=== PATIENT | female | born 1950 | race Caucasian/White ===

== ENCOUNTER 2017-01-04 17:02 | Emergency (ER) | payer MEDICARE, OTHER ==
[~2017-01-04] VITALS: Ht 160 cm; Wt 81.8 kg
--- NOTE | 2017-01-04 17:13 | ERA ---
ER Documentation Chief Complaint Date/Time DATE: 01/04/17 TIME: 17:13 Chief Complaint Palpitation HPI The patient is a 66-year-old female, presenting to the ER because of acute palpitation that began about an hour prior to arrival. She has similar symptoms previously from SVT, however it lasted longer this time. She denies syncope, near syncope, chest pain, dyspnea, abdominal pain, vomiting, dysuria, diarrhea. She does not smoke nor drink She was treated with adenosine 6 mg IV.aborted arrhythmia by EMS Past medical history: History of SVT, hypertension, CAD Past surgical history: Angioplasty ROS All systems reviewed and are negative except as per history of present illness. Medications Home Meds Reported Medications Amlodipine Besylate* (Norvasc*) 2.5 Mg Tablet, 5 MG PO QPM, TAB 01/04/17 Losartan Potassium* (Cozaar*) 100 Mg Tablet, 100 MG PO QAM, #30 TAB 01/04/17 Lorazepam* (Lorazepam*) 1 Mg Tablet, 2 MG PO HS Y for ANXIETY, #30 TAB 01/04/17 Tramadol Hcl* (Ultram*) 50 Mg Tablet, 50 MG PO Q6H Y for PAIN, TAB 01/04/17 Levothyroxine Sodium* (Levothyroxine Sodium*) 75 Mcg Tablet, 75 MCG PO BEFORE BREAKFAST, #30 TAB 01/04/17 Aspirin* (Aspirin* EC) 81 Mg Tablet.dr, 81 MG PO DAILY, TAB 01/04/17 Allergies Allergies: Coded Allergies: No Known Allergy (Unverified , 01/04/17) Physical Exam Vitals Vital Signs Date Time Temp Pulse Resp B/P Pulse Ox O2 Delivery O2 Flow Rate FiO2 01/04/17 19:00 98.0 77 20 142/79 97 Room Air 01/04/17 18:14 96 23 141/67 96 01/04/17 17:16 111 22 138/68 99 Room Air Physical Exam Const: No acute distress. Head: Atraumatic. Eyes: Normal Conjunctiva. ENT: Normal External Ears, Nose and Mouth. Neck: Full range of motion. No meningismus. Resp: Clear to auscultation bilaterally. Cardio: Regular rate and rhythm, no murmurs. Abd: Soft, non distended, normal bowel sounds, non tender. Skin: No petechiae or rashes. Back: No midline or flank tenderness. Ext: No cyanosis, or edema. Neur: Awake and alert. No focal deficit Psych: Normal Mood and Affect. Result Diagram: 01/04/17 1720 01/04/17 1720 Results 24 hrs Laboratory Tests Test 01/04/17 17:20 White Blood Count 7.410^3/ul Red Blood Count 4.8610^6/ul Hemoglobin 14.6g/dl Hematocrit 43.9% Mean Corpuscular Volume 90.3fl Mean Corpuscular Hemoglobin 30.0pg Mean Corpuscular Hemoglobin Concent 33.3g/dl Red Cell Distribution Width 13.3% Platelet Count 13892^3/UL Mean Platelet Volume 11.4fl Neutrophils % 48.8% Lymphocytes % 42.5% Monocytes % 5.6% Eosinophils % 2.0% Basophils % 0.7% Nucleated Red Blood Cells % 0.0/100WBC Neutrophils # 3.610^3/ul Lymphocytes # 3.210^3/ul Monocytes # 0.410^3/ul Eosinophils # 0.210^3/ul Basophils # 0.110^3/ul Nucleated Red Blood Cells # 0.010^3/ul Prothrombin Time 13.0Sec Prothrombin Time Ratio 1.0 INR International Normalized Ratio 0.98 Activated Partial Thromboplast Time 23.4Sec D-Dimer 604.95ng/ml D-Dimer Comment Sodium Level 141mmol/L Potassium Level 3.2mmol/L Chloride Level 104mmol/L Carbon Dioxide Level 24mmol/L Anion Gap 16 Blood Urea Nitrogen 17mg/dl Creatinine 0.85mg/dl Glucose Level 113mg/dl Calcium Level 8.8mg/dl Magnesium Level 2.1mg/dl Troponin I < 0.012ng/ml Thyroid Stimulating Hormone (TSH) 3.250MIU/L Current Medications Medications (Trade) Dose Ordered Sig/Pamela Route PRN Reason Start Time Stop Time Status Last Admin Dose Admin Potassium Chloride (Klor-Con 20) 40 meq ONCE STAT PO 01/04/17 19:21 01/04/17 19:23 DC 01/04/17 20:30 IV Flush 10 ml 10 ml STK-MED ONCE .ROUTE 01/04/17 19:29 01/04/17 19:30 DC 01/04/17 20:06 Sodium Chloride 100 ml @ ud STK-MED ONCE .ROUTE 01/04/17 19:29 01/04/17 19:30 DC 01/04/17 20:06 Iohexol (Omnipaque) 100 ml @ ud STK-MED ONCE .ROUTE 01/04/17 19:29 01/04/17 19:30 DC 01/04/17 20:07 Iohexol (Omnipaque 350mg/ ml) 50 ml STK-MED ONCE .ROUTE 01/04/17 19:45 01/04/17 19:46 DC Procedures/[place] [address] Radiology Main Line: [phone] DIAGNOSTIC IMAGING REPORT Patient: SAIRA KEMP : 1950 Age: 66 Sex: F MR #: [id number] DOS: 01/04/17 1718 Ordering MD: GEORGE COLE MD Location: E/R Room/Bed: PROCEDURE: XR Chest. CLINICAL INDICATION: Chest pain. TECHNIQUE: Single frontal view. COMPARISON: None. FINDINGS: The lungs are clear. The heart size is normal. There is no pleural effusion. There is no pneumothorax. IMPRESSION: 1. Normal chest radiograph. RPTAT: QQ .Dave Haider MD, MD Date Time Electronically viewed and signed by .Dave Haider MD, MD on 01/04/2017 17:52 .R/ CC: GEORGE COLE MD [place] [id number] Radiology Main Line: [phone] DIAGNOSTIC IMAGING REPORT Patient: SAIRA KEMP : 1950 Age: 66 Sex: F MR #: [id number] DOS: 01/04/17 1919 Ordering MD: GEORGE COLE MD Location: E/R Room/Bed: PROCEDURE: CTA Chest and pulmonary angiogram. CLINICAL INDICATION: Chest pain and shortness of breath. TECHNIQUE: CT scan of the chest and CT pulmonary angiogram was performed on a multidetector high-resolution CT scanner. High-resolution thin slice coronal and sagittal imaging was obtained from the axial source images. 3-D volumetric rendered post processing was performed as well. The patient was examined following the uncomplicated intravenous administration of 89 cc of Omnipaque- 350. The images were reviewed on a PACS workstation. The total exam CTDI equals 14.08, and 11.75 and the total exam DLP equals 456.63 mGy-cm. One or more of the following dose reduction techniques were used: Automated exposure control. Adjustment of the mA and/or kV according to patient size. Use of iterative reconstruction technique. COMPARISON: No prior studies are available for comparison. FINDINGS: CT chest: The lungs are clear. No focal opacification, effusion, pneumothorax, edema, or nodules are seen. The central tracheobronchial tree is clear. The mediastinum is unremarkable without evidence for mass or lymphadenopathy. There is a bovine arch configuration. The vascular structures of the mediastinum are normal in course and caliber. The heart size is normal without pericardial thickening or effusion. There are scattered aortic and coronary artery vascular calcifications. The axillary, subpectoral, and supraclavicular regions are unremarkable. Imaging obtained through the upper abdomen is remarkable for prominence of the left renal pelvis. There is approximately 2 cm cortical cyst in the mid pole left kidney.. The adrenal glands are symmetrically normal. The surrounding chest wall is unremarkable. The osseous structures are remarkable for degenerative spondylosis of the spine. CT pulmonary angiogram: No thrombus, clot, filling defect, or pulmonary web is identified. The pulmonary arteries are normal in caliber and morphology. No filling defect is present to suggest pulmonary embolism. There is no evidence for pulmonary arterial hypertension. IMPRESSION: 1. No evidence for pulmonary embolism. 2. No mass, lymphadenopathy or acute infiltrates. 3. Scattered aortic and coronary artery calcifications. RPTAT: BB .Megan Marinelli MD, Date Time Electronically viewed and signed by .Megan Marinelli MD, on 01/04/2017 20:51 .O/ CC: GEROGE COLE MD [place] [address] Radiology Main Line: [phone] DIAGNOSTIC IMAGING REPORT Patient: SAIRA KEMP : 1950 Age: 66 Sex: F MR #: [id number] DOS: 01/04/17 192 Ordering MD: GEORGE COLE MD Location: E/R Room/Bed: PROCEDURE: Ultrasound of the bilateral lower extremity venous system. CLINICAL INDICATION: Bilateral leg pain and swelling, deep venous thrombosis TECHNIQUE: Kincaid scale with and without compression, color doppler, spectral doppler of the venous system of the bilateral lower extremities was performed. Venous augmentation maneuvers were utilized. COMPARISON: No prior studies are available for comparison. FINDINGS: RIGHT: Common femoral vein: Patent. Femoral vein: Patent. Popliteal vein: Patent. Calf veins: Patent. No soft tissue abnormalities are identified. LEFT: Common femoral vein: Patent. Femoral vein: Patent. Popliteal vein: Patent. Calf veins: Patent. No soft tissue abnormalities are identified. IMPRESSION: No evidence of a deep vein thrombosis within the bilateral lower extremities. RPTAT: AADD .Renaldo Chowdary MD, MD Date Time Electronically viewed and signed by .Renaldo Chowdary MD, MD on 01/04/2017 20:35 .B/ CC: GEORGE COLE MD EKG: At 5:11 PM read by emergency physician Rate/Rhythm: Sinus tachycardia 110 beats/min QRS, ST, T-waves: Nonspecific ST abnormality, no PVC Impression: Abnormal EKG EKG: At 6:37 PM read by emergency physician Rate/Rhythm: Normal sinus rhythm 94 beats/min QRS, ST, T-waves: Nonspecific ST abnormality, no PVC, LAE Impression: Abnormal EKG MEDICAL MAKING DECISION: The patient is a 66-year-old female, presenting with recurrent SVT that aborted with all his adenosine 6 milligram IV, acute hypokalemia. She was treated with potassium chloride 40 mEq for low potassium ; she has been in the ER for many hours without any recurrent symptoms. The differential diagnoses considered include but are not limited to electrolytes imbalance, asthma, COPD, pneumonia, pulmonary embolus, pleural effusion, congestive heart failure. Departure Diagnosis: Primary Impression: SVT (supraventricular tachycardia) Additional Impression: Hypokalemia Condition: Good Comments I discussed the findings with the patient. I advised the patient to follow-up with her public relations assistant in about 1-2 days, sooner if needed and return if any concern. GEORGE COLE MD January 04, 2017 17:13
[2017-01-04 17:40] LABS: ADD SCAN DIFF NO
[2017-01-04 17:42] LABS: BASOPHIL # 0.1 10^3/ul (0.0-0.1); BASOPHILS % 0.7 % (0.0-2.0); EOSINOPHILS # 0.2 10^3/ul (0.0-0.5); HEMATOCRIT 43.9 % (37.0-47.0); HEMOGLOBIN 14.6 g/dl (12.0-16.0); LYMPHOCYTES # 3.2 10^3/ul (0.8-2.9); LYMPHOCYTES % 42.5 % (15.0-51.0); MEAN CORPUSCULAR HGB CONC 33.3 g/dl (32.0-37.0); MEAN CORPUSCULAR VOLUME 90.3 fl (82.0-101.0); MEAN PLATELET VOLUME 11.4 fl (7.4-10.4); MONOCYTE # 0.4 10^3/ul (0.3-0.9); MONOCYTES % 5.6 % (0.0-11.0); NEUTROPHIL # 3.6 10^3/ul (1.6-7.5); NEUTROPHILS % 48.8 % (39.0-77.0); PLATELET COUNT 176 10^3/UL (140-415); RED BLOOD COUNT 4.86 10^6/ul (4.20-5.40); RED CELL DISTRIBUTION WIDTH 13.3 % (11.5-14.5); WHITE BLOOD COUNT 7.4 10^3/ul (4.8-10.8)
[2017-01-04] MEDS ORDERED: ASPI-664 PO (17:50)
[2017-01-04] MEDS ORDERED: LEVO75TA5 PO (17:50)
[2017-01-04] MEDS ORDERED: LORA1TAB PO (17:51)
[2017-01-04] MEDS ORDERED: TRAM-40 PO (17:51)
--- NOTE | 2017-01-04 17:52 | RADRPT ---
PROCEDURE: XR Chest. CLINICAL INDICATION: Chest pain. TECHNIQUE: Single frontal view. COMPARISON: None. FINDINGS: The lungs are clear. The heart size is normal. There is no pleural effusion. There is no pneumothorax. IMPRESSION: 1. Normal chest radiograph. RPTAT: QQ .Dave Haider MD, Date Time Electronically viewed and signed by .Dave Haider MD, on 01/04/2017 17:52 .R/
[2017-01-04 17:56] LABS: INR 0.98
[2017-01-04 17:57] LABS: PARTIAL THROMBOPLASTIN TIME 23.4 Sec (25.0-35.0)
[2017-01-04] MEDS ORDERED: LOSA100T47 PO (17:57)
[2017-01-04] MEDS ORDERED: AMLO2.5T2 PO (17:58)
[2017-01-04 17:59] LABS: D-DIMER 604.95 ng/ml (<460)
[2017-01-04 18:14] VITALS: Ht 160 cm; Wt 81.8 kg
[2017-01-04 18:22] LABS: TROPONIN-I < 0.012 ng/ml (0.00-0.12)
[2017-01-04 18:26] LABS: CHLORIDE 104 mmol/L (97-110)
[2017-01-04 18:27] LABS: POTASSIUM 3.2 mmol/L (3.5-5.1); SODIUM 141 mmol/L (135-144)
[2017-01-04 18:29] LABS: CREATININE 0.85 mg/dl (0.44-1.00)
[2017-01-04 18:30] LABS: ANION GAP 16 (8-16); BLOOD UREA NITROGEN 17 mg/dl (7-20); CALCIUM 8.8 mg/dl (8.4-10.2); CARBON DIOXIDE 24 mmol/L (21-31); GLUCOSE 113 mg/dl (70-220); MAGNESIUM 2.1 mg/dl (1.7-2.5)
[2017-01-04] MEDS ORDERED: POTASSIUM CHLORIDE (SR) 20 MEQ TAB PO STA (19:21)
[2017-01-04] MEDS ORDERED: IOHEXOL 100 ML ONE (19:29)
[2017-01-04] MEDS ORDERED: SOD CHLORIDE 0.9% 100 ML ONE (19:29)
[2017-01-04] MEDS ORDERED: IOHEXOL 350MG/ML 50 ML BTL ONE (19:45)
--- NOTE | 2017-01-04 20:36 | RADRPT ---
PROCEDURE: Ultrasound of the bilateral lower extremity venous system. CLINICAL INDICATION: Bilateral leg pain and swelling, deep venous thrombosis TECHNIQUE: Kincaid scale with and without compression, color doppler, spectral doppler of the venous system of the bilateral lower extremities was performed. Venous augmentation maneuvers were utilized . COMPARISON: No prior studies are available for comparison. FINDINGS: RIGHT: Common femoral vein: Patent. Femoral vein: Patent. Popliteal vein: Patent. Calf veins: Patent. No soft tissue abnormalities are identified. LEFT: Common femoral vein: Patent. Femoral vein: Patent. Popliteal vein: Patent. Calf veins: Patent. No soft tissue abnormalities are identified. IMPRESSION: No evidence of a deep vein thrombosis within the bilateral lower extremities. RPTAT: AADD .Renaldo Chowdary MD, MD Date Time Electronically viewed and signed by .Renaldo Chowdary MD, on 01/04/2017 20:35 .B/
--- NOTE | 2017-01-04 20:51 | RADRPT ---
PROCEDURE: CTA Chest and pulmonary angiogram. CLINICAL INDICATION: Chest pain and shortness of breath. TECHNIQUE: CT scan of the chest and CT pulmonary angiogram was performed on a multidetector high-r esolution CT scanner. High-resolution thin slice coronal and sagittal imaging was obtained from the axial source images. 3-D volumetric rendered post processing was performed as well. The patient w as examined following the uncomplicated intravenous administration of 89 cc of Omnipaque-350. The im ages were reviewed on a PACS workstation. The total exam CTDI equals 14.08, and 11.75 and the total exam DLP equals 456.63 mGy-cm. One or more of the following dose reduction techniques were used: Automated exposure control. Adjustment of the mA and/or kV according to patient size. Use of iterative reconstruction technique. COMPARISON: No prior studies are available for comparison. FINDINGS: CT chest: The lungs are clear. No focal opacification, effusion, pneumothorax, edema, or nodules are seen. T he central tracheobronchial tree is clear. The mediastinum is unremarkable without evidence for mass or lymphadenopathy. There is a bovine arch configuration. The vascular structures of the mediastinum are normal in course and caliber. The he art size is normal without pericardial thickening or effusion. There are scattered aortic and mitchell ry artery vascular calcifications. The axillary, subpectoral, and supraclavicular regions are unrem arkable. Imaging obtained through the upper abdomen is remarkable for prominence of the left renal pelvis. T here is approximately 2 cm cortical cyst in the mid pole left kidney.. The adrenal glands are symme trically normal. The surrounding chest wall is unremarkable. The osseous structures are remarkable for degenerative spondylosis of the spine. CT pulmonary angiogram: No thrombus, clot, filling defect, or pulmonary web is identified. The pulmonary arteries are randi l in caliber and morphology. No filling defect is present to suggest pulmonary embolism. There is no evidence for pulmonary arterial hypertension. IMPRESSION: 1. No evidence for pulmonary embolism. 2. No mass, lymphadenopathy or acute infiltrates. 3. Scattered aortic and coronary artery calcifications. RPTAT: BB .Megan Marinelli MD, MD Date Time Electronically viewed and signed by .Megan Marinelli MD, on 01/04/2017 20:51 .O/
[2017-01-04 21:35] VITALS: BP 128/78; PULSE 88; RESP 18; TEMP 98.2
== END 2017-01-04 21:49 | disposition home or self-care (01) ==
LOC: E/R 17:02
DX: I47.1 Supraventricular tachycardia (principal); I25.10 Atherosclerotic heart disease of native coronary artery without angina pectoris; I10 Essential (primary) hypertension; E87.6 Hypokalemia; R07.9 Chest pain, unspecified; R40.2142 Coma scale, eyes open, spontaneous, at arrival to emergency department; R40.2362 Coma scale, best motor response, obeys commands, at arrival to emergency department; R40.2252 Coma scale, best verbal response, oriented, at arrival to emergency department; Z79.82 Long term (current) use of aspirin
CPT/HCPCS: 36415; 71010; 71275; 80048; 83735; 84443; 84484; 85025; 85378; 85610; 85730; 93005; 93970; 99285; Q9967